=== PATIENT | male | born 1955 | race African-American/Black ===

== ENCOUNTER 2017-07-04 18:48 | Inpatient (IN) | payer OTHER ==
[~2017-07-04] VITALS: Ht 162.6 cm; Wt 64.6 kg
[2017-07-04] MEDS ORDERED: SOD CHLORIDE 0.9% 1,000 ML IV STA ×2 (18:55→19:59)
[2017-07-04 19:00] VITALS: TEMP 97.6
[2017-07-04 19:26] LABS: BASOPHILS % 0.1 % (0.0-2.0); HEMOGLOBIN 13.9 g/dl (14.0-18.0); LYMPHOCYTES # 0.9 10^3/ul (0.8-2.9); LYMPHOCYTES % 10.9 % (15.0-51.0); MEAN CORPUSCULAR HEMOGLOBIN 30.8 pg (29.0-33.0); MEAN CORPUSCULAR HGB CONC 33.1 g/dl (32.0-37.0); MEAN CORPUSCULAR VOLUME 93.1 fl (82.0-101.0); MEAN PLATELET VOLUME 12.7 fl (7.4-10.4); MONOCYTE # 0.3 10^3/ul (0.3-0.9); MONOCYTES % 3.9 % (0.0-11.0); NEUTROPHIL # 7.3 10^3/ul (1.6-7.5); NEUTROPHILS % 84.9 % (39.0-77.0); PLATELET COUNT 245 10^3/UL (140-415); RED BLOOD COUNT 4.51 10^6/ul (4.70-6.10); WHITE BLOOD COUNT 8.6 10^3/ul (4.8-10.8)
--- NOTE | 2017-07-04 19:28 | RADRPT ---
PROCEDURE: XR Chest. CLINICAL INDICATION: Altered mental status. TECHNIQUE: Single frontal chest x-ray. COMPARISON: None. FINDINGS: The cardiomediastinal silhouette is unremarkable. There is no congestive heart failure.. No focal i nfiltrate is seen. There is no pleural effusion. There is no pneumothorax. The osseous structures are unremarkable. IMPRESSION: 1. No active disease. RPTAT: HMVK .Parker Acevedo MD, MD Date Time Electronically viewed and signed by .Parker Acevedo MD, MD on 07/04/2017 19:28 .K/
[2017-07-04 19:41] LABS: INR 1.03; PROTIME 13.6 Sec (11.9-14.9); PT RATIO 1.1
[2017-07-04 19:42] LABS: PARTIAL THROMBOPLASTIN TIME 20.6 Sec (25.0-35.0)
[2017-07-04 19:45] LABS: LACTIC ACID 1.7 mmol/L (0.5-2.0)
[2017-07-04 19:46] LABS: ALANINE AMINOTRANSFERASE 28 IU/L (13-69); ALBUMIN/GLOBULIN RATIO 1.73; ALKALINE PHOSPHATASE 84 IU/L (42-121); ANION GAP 37 (8-16); ASPARTATE AMINO TRANSFERASE 16 IU/L (15-46); BLOOD UREA NITROGEN 39 mg/dl (7-20); CALCIUM 9.3 mg/dl (8.4-10.2); CHLORIDE 97 mmol/L (97-110); CREATININE 1.98 mg/dl (0.61-1.24); POTASSIUM 5.9 mmol/L (3.5-5.1); SODIUM 136 mmol/L (135-144); TOTAL PROTEIN 6.3 g/dl (6.1-8.1)
[2017-07-04] MEDS ORDERED: LISI10TA2 PO (19:50)
[2017-07-04] MEDS ORDERED: HYDR25TA6 PO (19:51)
[2017-07-04] MEDS ORDERED: AMLO5TAB4 PO (19:51)
[2017-07-04 19:57] LABS: TROPONIN-I 0.017 ng/ml (0.00-0.12)
[2017-07-04 19:59] LABS: ACETAMINOPHEN < 10.0 ug/ml (10.0-30.0); CARBON DIOXIDE 8 mmol/L (21-31); ETHANOL < 10.0 mg/dl; GLUCOSE 665 mg/dl (70-220); SALICYLATE < 1.0 mg/dl (5.0-30.0)
[2017-07-04] MEDS ORDERED: INSULIN HUMAN REGULAR 100 UNIT in SOD CHLORIDE 0.9% 99 ML IV STA ×2 (19:59→22:57)
[2017-07-04] MEDS ORDERED: LACTATED RINGER'S 1,000 ML IV STA (19:59)
--- NOTE | 2017-07-04 20:33 | RADRPT ---
PROCEDURE: Noncontrast CT Head. CLINICAL INDICATION: Altered level of consciousness. TECHNIQUE: Noncontrast CT of the head was obtained. The administered radiation dose was CTDI vol = 45.01 mGy, DLP = 720.23 mGy-cm. One or more of the following dose reduction techniques were used: Au tomated exposure control, Adjustment of the mA and/or kV according to patient size, or Use of iterat jelena reconstruction technique. DICOM images are available. COMPARISON: There are no similar studies submitted for comparison. FINDINGS: There is mild generalized cerebral volume loss. There is minimal periventricular hypoattenuation suggesting chronic microvascular ischemic changes. There are mild vascular calcifications within the intracranial carotid arteries. There is no loss of grover-white differentiation to suggest acute territorial infarction. There is no acute intracranial hemorrhage or extra-axial fluid collection. There is no mass effect. No midline shift is identified. The orbits are within normal limits. The paranasal sinuses are well aerated. No destructive osseous lesion is identified. IMPRESSION: 1. No acute intracranial hemorrhage or extra-axial fluid collection. 2. Mild generalized cerebral volume loss. 3. Minimal chronic microvascular ischemic changes. Further findings as detailed above. RPTAT: HVF .Jairo Albert MD, Date Time Electronically viewed and signed by .Jairo Albert MD, on 07/04/2017 20:33 .F/
[2017-07-04] MEDS ORDERED: BISACODYL (EC) 5 MG TAB PO PRN (21:00)
[2017-07-04] MEDS ORDERED: MAGNESIUM HYDROXIDE 30ML CUP PO PRN (21:00)
[2017-07-04] MEDS ORDERED: ACETAMINOPHEN 325 MG TAB PO PRN (21:00)
[2017-07-04] MEDS ORDERED: ACETAMINOPHEN 650MG/20.3ML CUP PO PRN (21:00)
[2017-07-04] MEDS ORDERED: ONDANSETRON 4 MG INJ IV PRN (21:00)
[2017-07-04] MEDS ORDERED: DOCUSATE SODIUM 100 MG CAP PO PRN (21:00)
--- NOTE | 2017-07-04 21:00 | ERD ---
ER Documentation Chief Complaint Chief Complaint aloc, incontinent of urine, URI symptoms, BG "hi"; nondiabetic HPI Patient is a 61-year-old male with hypertension who presents confused. Please note the history and physical exam is limited secondary to the patient's confusion. The patient was brought in by ambulance. He was shivering and shaking per his friend. He had decreased intake by mouth today and was altered and urinating around the house. His blood sugar was greater than 500 by paramedics and they gave some normal saline. Upon review of old medical records this is the patient's first visit to the ER. He does not currently have a primary doctor. He denies diabetes. ROS All systems reviewed and are negative except as per history of present illness. Medications Home Meds Reported Medications Amlodipine Besylate* (Norvasc*) 5 Mg Tablet, 5 MG PO DAILY, TAB 07/04/17 Hydrochlorothiazide* (Hydrochlorothiazide*) 25 Mg Tab, 25 MG PO DAILY, #30 TAB 07/04/17 Lisinopril* (Lisinopril*) 10 Mg Tablet, 10 MG PO DAILY, #30 TAB 07/04/17 Allergies Allergies: Coded Allergies: No Known Allergy (Unverified , 07/04/17) PMhx/Soc Positive for hypertension FmHx Family History: No diabetes Physical Exam Vitals Vital Signs Date Time Temp Pulse Resp B/P Pulse Ox O2 Delivery O2 Flow Rate FiO2 07/04/17 18:58 97.6 76 18 146/63 98 Physical Exam Const: Moderate distress Head: Atraumatic Eyes: Normal Conjunctiva ENT: Normal External Ears, Nose and Mouth. Neck: Full range of motion..~ No meningismus. Resp: Clear to auscultation bilaterally Cardio: Regular rate and rhythm, no murmurs Abd: Soft, non tender, non distended. Normal bowel sounds Skin: No petechiae or rashes Back: No midline or flank tenderness Ext: No cyanosis, or edema Neur: Awake confused Result Diagram: 07/04/17191407/04/171914 Results 24 hrs Laboratory Tests Test 07/04/17 18:55 07/04/17 19:15 Bedside Glucose > 595mg/dL White Blood Count 8.610^3/ul Red Blood Count 4.5110^6/ul Hemoglobin 13.9g/dl Hematocrit 42.0% Mean Corpuscular Volume 93.1fl Mean Corpuscular Hemoglobin 30.8pg Mean Corpuscular Hemoglobin Concent 33.1g/dl Red Cell Distribution Width 12.0% Platelet Count 73290^3/UL Mean Platelet Volume 12.7fl Neutrophils % 84.9% Lymphocytes % 10.9% Monocytes % 3.9% Eosinophils % 0.0% Basophils % 0.1% Nucleated Red Blood Cells % 0.0/100WBC Neutrophils # 7.310^3/ul Lymphocytes # 0.910^3/ul Monocytes # 0.310^3/ul Eosinophils # 0.010^3/ul Basophils # 0.010^3/ul Nucleated Red Blood Cells # 0.010^3/ul Prothrombin Time 13.6Sec Prothrombin Time Ratio 1.1 INR International Normalized Ratio 1.03 Activated Partial Thromboplast Time 20.6Sec Sodium Level 136mmol/L Potassium Level 5.9mmol/L Chloride Level 97mmol/L Carbon Dioxide Level 8mmol/L Anion Gap 37 Blood Urea Nitrogen 39mg/dl Creatinine 1.98mg/dl Glucose Level 665mg/dl Lactic Acid Level 1.7mmol/L Calcium Level 9.3mg/dl Total Bilirubin 0.0mg/dl Direct Bilirubin 0.00mg/dl Indirect Bilirubin 0.0mg/dl Aspartate Amino Transf (AST/SGOT) 16IU/L Alanine Aminotransferase (ALT/SGPT) 28IU/L Alkaline Phosphatase 84IU/L Ammonia 18umol/l Troponin I 0.017ng/ml Total Protein 6.3g/dl Albumin 4.0g/dl Globulin 2.30g/dl Albumin/Globulin Ratio 1.73 Salicylates Level < 1.0mg/dl Acetaminophen Level < 10.0ug/ml Ethyl Alcohol Level < 10.0mg/dl Current Medications Medications (Trade) Dose Ordered Sig/John Route PRN Reason Start Time Stop Time Status Last Admin Dose Admin Sodium Chloride 1,000 ml @ 1,000 mls/hr Q1H STAT IV 07/04/17 18:55 07/04/17 19:54 DC 07/04/17 19:28 Sodium Chloride 1,000 ml @ 1,000 mls/hr Q1H STAT IV 07/04/17 19:59 07/04/17 20:58 07/04/17 20:39 Lactated Ringer's 1,000 ml @ 1,000 mls/hr Q1H STAT IV 07/04/17 19:59 07/04/17 20:58 Insulin Human Regular 100 unit/ Sodium Chloride 100 ml @ 7 mls/hr ONCE STAT IV 07/04/17 19:59 07/05/17 10:16 Sodium Chloride (NS) 1,000 ml @ 250 mls/hr Q4H IV 07/04/17 20:38 UNV Ondansetron HCl (Zofran Inj) 4 mg Q6H PRN IV NAUSEA AND/OR VOMITING 07/04/17 21:00 UNV Acetaminophen (Tylenol Liquid) 650 mg Q6H PRN PO PAIN LEVEL 1-3 OR FEVER 07/04/17 21:00 UNV Acetaminophen (Tylenol Tab) 650 mg Q6H PRN PO PAIN LEVEL 1-3 OR FEVER 07/04/17 21:00 UNV Docusate Sodium (Colace) 100 mg Q12H PRN PO CONSTIPATION 07/04/17 21:00 UNV Magnesium Hydroxide (Milk Of Mag) 30 ml DAILY PRN PO CONSTIPATION 07/04/17 21:00 UNV Bisacodyl (Dulcolax) 5 mg DAILY PRN PO CONSTIPATION 07/04/17 21:00 UNV Pantoprazole (Protonix Iv) 40 mg DAILY@06 IV 07/05/17 06:00 UNV Enoxaparin Sodium (Lovenox) 40 mg DAILY SC 07/05/17 09:00 UNV Procedures/MDM CT brain negative for intrarenal hemorrhage or mass per radiology. Patient is a 61-year-old male presents with new onset diabetes and acute diabetic ketoacidosis. He was found to have a blood sugar greater than 600 and a bicarbonate of 8. He was given 2 L of normal saline 1 L of lactated Ringer's as well as regular insulin drip at 7 U/h. The patient will be admitted to the care of Dr. Diaz as he has [facility] insurance. He is critically ill. He will need treatment for the DKA and then education and treatment regarding diabetes as well. Critical Care: Time: 45 minutes excluding all billable procedures. Treatments/Evaluations: Close monitoring and treatment of unstable vital signs, cardiorespiratory, and neurologic status, while maintaining tight balance of fluid, respiratory, and cardiac interventions. Departure Diagnosis: Primary Impression: Altered level of consciousness Additional Impression: DKA (diabetic ketoacidoses) Diabetes mellitus type: other specified (including GISSELL) Diabetes mellitus complication detail: without coma Qualified Code: E13.10 - Diabetic ketoacidosis without coma associated with other specified diabetes mellitus Condition: Critical PENG REYES MD Jul 04, 2017 21:00
[2017-07-04] MEDS: SOD CHLORIDE 0.9% 1,000 ML IV SCH (21:07)
[2017-07-04 21:12] LABS: AADO2 Arterial 4.1 mmHg (7.0-24.0); Arterial Base Excess -22.4 mmol/L (-3.0-3); Arterial COHb 0.3 % (0.0-3.0); Arterial Fraction of Oxyhgb 97.1 % (93.0-99.0); Arterial HCO3 3.8 mmol/L (22.0-26.0); Arterial MetHb 0.4 % (0.0-1.5); Arterial Total Hemglobin 13.8 g/dl (12.0-18.0); MODE ROOM AIR
[2017-07-04 22:18] LABS: ADD UMIC YES; UR ASCORBIC ACID NEGATIVE (NEGATIVE); UR BACTERIA FEW /HPF (NONE SEEN); UR BILIRUBIN (Dip) NEGATIVE (NEGATIVE); UR BLOOD (Dip) 1+ mg/dL (NEGATIVE); UR CLARITY CLEAR (CLEAR); UR COLOR COLORLESS (YELLOW); UR GLUCOSE (Dip) 3+ mg/dL (NEGATIVE); UR KETONES (Dip) 2+ mg/dL (NEGATIVE); UR LEUKOCYTE ESTERASE (Dip) NEGATIVE Leu/ul (NEGATIVE); UR MUCUS FEW /HPF (NONE SEEN); UR NITRITE (Dip) NEGATIVE (NEGATIVE); UR RBC 1 /HPF (0-5); UR SPECIFIC GRAVITY (Dip) 1.014 (1.003-1.030); UR TOTAL PROTEIN (Dip) NEGATIVE (NEGATIVE); UR UROBILINOGEN (Dip) NEGATIVE (NEGATIVE)
[2017-07-04 22:38] LABS: BARBITURATES Negative (NEGATIVE); BENZODIAZEPINES Negative (NEGATIVE); CANNABINOIDS Negative (NEGATIVE); COCAINE Negative (NEGATIVE); OPIATES Negative (NEGATIVE)
--- NOTE | 2017-07-04 22:53 | QN ---
Documentation Comment [id number] LEEANNA BENNETT MD Jul 04, 2017 22:53
[2017-07-04] MEDS ORDERED: DEXTROSE 50% 50 ML SYRINGE IV PRN ×2 (23:00)
[2017-07-04] MEDS ORDERED: GLUCOSE GEL 15 GRAM TUBE PO PRN ×2 (23:00)
[2017-07-04] MEDS ORDERED: GLUCOSE GEL 15 GRAM TUBE BUCCAL PRN (23:00)
[2017-07-04] MEDS ORDERED: GLUCAGON 1 MG INJ IM PRN (23:00)
[2017-07-04 23:02] LABS: CALCIUM 8.7 mg/dl (8.4-10.2); CREATININE 1.64 mg/dl (0.61-1.24); POTASSIUM 5.4 mmol/L (3.5-5.1)
[2017-07-05] VITALS (26 sets, daily range): BP systolic 91–131; BP diastolic 46–83; PULSE 54–85; RESP 5–24; Ht 162.6 cm; Wt 64.6 kg
[2017-07-05 01:07] LABS: CALCIUM 9.3 mg/dl (8.4-10.2); CREATININE 1.37 mg/dl (0.61-1.24); POTASSIUM 5.3 mmol/L (3.5-5.1)
[2017-07-05] MEDS ORDERED: DEXTROSE 50% 50 ML IV PRN (01:15)
[2017-07-05] MEDS ORDERED: DEXTROSE 50% 25 ML IV PRN (01:15)
[2017-07-05] MEDS ORDERED: ADJUSTMENT OF INSULIN INFUSION RATE (DKA PROTOCOL) XX SCH (01:30)
[2017-07-05] MEDS ORDERED: ACCU-CHEK XX SCH (02:00)
[2017-07-05] MEDS: SOD CHLORIDE 0.9% 1,000 ML IV SCH ×2 (02:09→12:25)
--- NOTE | 2017-07-05 02:40 | HP ---
DATE OF ADMISSION: 07/04/2017 HISTORY OF PRESENT ILLNESS: Mr. Doty is a 61-year-old male who has no significant past medical history except history of hypertension, on amlodipine, hydrochlorothiazide and lisinopril, presented with complaints, as per the patient, of shivering and shaking. The patient also has a decreased intake by mouth, was initially confused. The patient received IV fluids in the ER. ABG done, showed 7.015 pH, 11, CO2 of 132. The patient's sodium is 136, potassium 5.9, CO2 8, BUN 39, and creatinine 1.98. The patient has a urinalysis that is negative. Urine toxicology is negative, hemoglobin of 8.6, hematocrit 13.9. The patient's urinalysis is negative and the patient is going to be admitted for further management. PAST MEDICAL HISTORY: Hypertension. No history of diabetes mellitus. ALLERGY HISTORY: Cannot be obtained. FAMILY HISTORY: Cannot be obtained. SOCIAL HISTORY: Cannot be obtained. MEDICATION HISTORY: Medication history at home listed as: 1. Amlodipine. 2. Hydrochlorothiazide. 3. Lisinopril. REVIEW OF SYSTEMS: HEENT: Unremarkable for headache, diplopia, blurred vision. RESPIRATORY: Unremarkable. ABDOMEN: Unremarkable. EXTREMITIES: Unremarkable. CENTRAL NERVOUS SYSTEM: As mentioned above. PHYSICAL EXAMINATION: GENERAL: The patient is awake, alert, looks clinically dehydrated. VITAL SIGNS: Pulse 91, blood pressure 126/63. HEAD: Atraumatic, normocephalic. Pupils are equal, reactive to light. NECK: Supple. No JVD. LUNGS: Clear. CARDIOVASCULAR: S1, S2 are normal. ABDOMEN: Soft. Bowel sounds positive. No palpable mass or hepatosplenomegaly. EXTREMITIES: No cyanosis, clubbing, or edema. CENTRAL NERVOUS SYSTEM: The patient is awake, alert with no focal deficit. LABORATORY DATA: As mentioned above. IMPRESSION: 1. Diabetic ketoacidosis. 2. Hyperkalemia. 3. Hyponatremia. 4. Acute kidney injury. 5. Dehydration. 6. History of hypertension. PLAN: Plan at this point is to give this patient IV fluid, insulin drip, PPI and DVT prophylaxis. The patient will have electrolytes monitored. Dictated By: LEEANNA ROBLES/LEO Conf#: [id number] DID#: [id number] CC: LEEANNA BENNETT MD;*EndCC* MTDD
[2017-07-05] MEDS ORDERED: INSULIN HUMAN REGULAR 100 UNIT in SOD CHLORIDE 0.9% 99 ML IV SCH ×2 (03:00→11:30)
[2017-07-05] MEDS ORDERED: DEXTROSE 50% 50 ML SYRINGE IV PRN ×4 (03:00→10:00)
[2017-07-05] MEDS: ACCU-CHEK XX SCH ×21 (03:03→23:00)
[2017-07-05] MEDS: DEXTROSE 5%-0.9% NACL 1,000 ML IV SCH ×2 (03:17→09:13)
[2017-07-05 03:28] LABS: CREATININE 1.32 mg/dl (0.61-1.24); POTASSIUM 4.7 mmol/L (3.5-5.1)
[2017-07-05] MEDS: PANTOPRAZOLE 40 MG INJ IV SCH (05:32)
[2017-07-05 05:46] LABS: BASOPHILS % 0.3 % (0.0-2.0); EOSINOPHILS % 0.6 % (0.0-7.0); HEMATOCRIT 34.5 % (42.0-52.0); HEMOGLOBIN 11.9 g/dl (14.0-18.0); LYMPHOCYTES # 1.3 10^3/ul (0.8-2.9); LYMPHOCYTES % 19.4 % (15.0-51.0); MEAN CORPUSCULAR HEMOGLOBIN 31.2 pg (29.0-33.0); MEAN CORPUSCULAR HGB CONC 34.5 g/dl (32.0-37.0); MEAN CORPUSCULAR VOLUME 90.3 fl (82.0-101.0); MEAN PLATELET VOLUME 12.1 fl (7.4-10.4); MONOCYTE # 0.5 10^3/ul (0.3-0.9); MONOCYTES % 6.9 % (0.0-11.0); NEUTROPHIL # 4.8 10^3/ul (1.6-7.5); NEUTROPHILS % 72.5 % (39.0-77.0); PLATELET COUNT 212 10^3/UL (140-415); RED BLOOD COUNT 3.82 10^6/ul (4.70-6.10); WHITE BLOOD COUNT 6.6 10^3/ul (4.8-10.8)
[2017-07-05 06:20] LABS: ALBUMIN 2.9 g/dl (3.3-4.9); ALBUMIN/GLOBULIN RATIO 0.96; BILIRUBIN,INDIRECT 0.1 mg/dl (0-1.1); BILIRUBIN,TOTAL 0.1 mg/dl (0.2-1.3); CALCIUM 8.9 mg/dl (8.4-10.2); CREATININE 1.1 mg/dl (0.61-1.24); PHOSPHORUS 1.7 mg/dl (2.5-4.9); TOTAL PROTEIN 5.9 g/dl (6.1-8.1)
[2017-07-05 09:11] LABS: CALCIUM 7.4 mg/dl (8.4-10.2); CREATININE 0.99 mg/dl (0.61-1.24); POTASSIUM 3.3 mmol/L (3.5-5.1)
--- NOTE | 2017-07-05 09:25 | PN ---
Date/Time of Note Date/Time of Note DATE: 07/05/17 TIME: 09:24 Assessment/Plan VTE Prophylaxis VTE Prophylaxis Intervention: LMWH Lines/Catheters IV Catheter Type (from [facility]): Peripheral IV Urinary Cath still in place: No Assessment/Plan Chief Complaint/Hosp Course 1 Diabetic ketoacidosis. 2. Hyperkalemia. 3. Hyponatremia. 4. Acute kidney injury resolved likley due to dehydration 5. Dehydration. 6. History of hypertension. 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 Pupils are equal, reactive to light. NECK: Supple. No JVD. LUNGS: Clear. CARDIOVASCULAR: S1, S2 are normal. ABDOMEN: Soft. Bowel sounds positive. No palpable mass or hepatosplenomegaly. EXTREMITIES: No cyanosis, clubbing, or edema. CENTRAL NERVOUS SYSTEM: The patient is awake, alert with no focal deficit. Results Result Diagram: 07/05/17 0445 07/05/17 0445 Results 24 hrs Laboratory Tests Test 07/04/17 18:55 07/04/17 19:15 07/04/17 21:00 07/04/17 21:24 Bedside Glucose > 595 *H 482 *H White Blood Count 8.6 Red Blood Count 4.51 L Hemoglobin 13.9 L Hematocrit 42.0 Mean Corpuscular Volume 93.1 Mean Corpuscular Hemoglobin 30.8 Mean Corpuscular Hemoglobin Concent 33.1 Red Cell Distribution Width 12.0 Platelet Count 245 Mean Platelet Volume 12.7 H Neutrophils % 84.9 H Lymphocytes % 10.9 L Monocytes % 3.9 Eosinophils % 0.0 Basophils % 0.1 Nucleated Red Blood Cells % 0.0 Neutrophils # 7.3 Lymphocytes # 0.9 Monocytes # 0.3 Eosinophils # 0.0 Basophils # 0.0 Nucleated Red Blood Cells # 0.0 Prothrombin Time 13.6 Prothrombin Time Ratio 1.1 INR International Normalized Ratio 1.03 Activated Partial Thromboplast Time 20.6 L Sodium Level 136 Potassium Level 5.9 H Chloride Level 97 Carbon Dioxide Level 8 *L Anion Gap 37 H Blood Urea Nitrogen 39 H Creatinine 1.98 H Glucose Level 665 *H Hemoglobin A1c Lactic Acid Level 1.7 Calcium Level 9.3 Total Bilirubin 0.0 L Direct Bilirubin 0.00 Indirect Bilirubin 0.0 Aspartate Amino Transf (AST/SGOT) 16 Alanine Aminotransferase (ALT/SGPT) 28 Alkaline Phosphatase 84 Ammonia 18 Troponin I 0.017 Total Protein 6.3 Albumin 4.0 Globulin 2.30 Albumin/Globulin Ratio 1.73 Salicylates Level < 1.0 L Acetaminophen Level < 10.0 L Ethyl Alcohol Level < 10.0 Blood Gas Specimen Source Blood arterial Arterial Blood Date Drawn 07/04/2017 9:00:11 PM Arterial Blood pH (Temp corrected) 7.152 *L Arterial Blood pCO2 (Temp correct) 11.2 L Arterial Blood pO2 (Temp corrected) 132.2 H Arterial Blood HCO3 3.8 *L Arterial Blood Base Excess -22.4 L Arterial Blood Oxygen Saturation 97.8 Noel Test N/A Arterial Blood Gas Puncture Site Right Brachial Arterial Blood Carboxyhemoglobin 0.3 Arterial Blood Methemoglobin 0.4 Blood Gas A-a O2 Differential 4.1 L Oxyhemoglobin Percent 97.1 Total Hemoglobin 13.8 Blood Gas Temperature 37.0 Blood Gas Actual Respiration Rate 26 Blood Gas Modality ROOM AIR FiO2 21.0 Blood Gas Critical Value Read Back DIALY GAUTHIER Blood Gas Notified Whom BK Blood Gas Notified Time 07/04/2017 9:11:45 PM Test 07/04/17 22:00 07/04/17 22:31 07/04/17 23:08 07/05/17 00:26 Urine Color COLORLESS Urine Clarity CLEAR Urine pH 5.0 Urine Specific [place] 1.014 Urine Ketones 2+ H Urine Nitrite NEGATIVE Urine Bilirubin NEGATIVE Urine Urobilinogen NEGATIVE Urine Leukocyte Esterase NEGATIVE Urine Microscopic RBC 1 Urine Microscopic WBC 1 Urine Bacteria FEW A Urine Mucus FEW A Urine Hemoglobin 1+ H Urine Glucose 3+ H Urine Total Protein NEGATIVE Urine Opiates Screen Negative Urine Barbiturates Negative Urine Amphetamines Screen Negative Urine Benzodiazepines Screen Negative Urine Cocaine Screen Negative Urine Cannabinoids Negative Sodium Level 142 145 H Potassium Level 5.4 H 5.3 H Chloride Level 107 # 109 Carbon Dioxide Level 6 *L 12 L Anion Gap 34 H 29 H Blood Urea Nitrogen 34 H 34 H Creatinine 1.64 H 1.37 H Glucose Level 501 #*H 266 #H Calcium Level 8.7 9.3 Bedside Glucose 375 H Test 07/05/17 00:27 07/05/17 01:42 07/05/17 02:52 07/05/17 03:03 Bedside Glucose 247 H 282 H 171 Sodium Level 147 H Potassium Level 4.7 Chloride Level 114 H Carbon Dioxide Level 12 L Anion Gap 26 H Blood Urea Nitrogen 33 H Creatinine 1.32 H Glucose Level 170 Calcium Level 9.0 Test 07/05/17 04:28 07/05/17 04:45 07/05/17 05:25 07/05/17 06:01 Bedside Glucose 164 88 86 White Blood Count 6.6 # Red Blood Count 3.82 L Hemoglobin 11.9 L Hematocrit 34.5 L Mean Corpuscular Volume 90.3 Mean Corpuscular Hemoglobin 31.2 Mean Corpuscular Hemoglobin Concent 34.5 Red Cell Distribution Width 12.0 Platelet Count 212 Mean Platelet Volume 12.1 H Neutrophils % 72.5 Lymphocytes % 19.4 Monocytes % 6.9 Eosinophils % 0.6 Basophils % 0.3 Nucleated Red Blood Cells % 0.0 Neutrophils # 4.8 Lymphocytes # 1.3 Monocytes # 0.5 Eosinophils # 0.0 Basophils # 0.0 Nucleated Red Blood Cells # 0.0 Sodium Level 145 H Potassium Level 4.0 Chloride Level 115 H Carbon Dioxide Level 18 L Anion Gap 16 # Blood Urea Nitrogen 31 H Creatinine 1.10 Glucose Level 101 # Calcium Level 8.9 Phosphorus Level 1.7 L Magnesium Level 2.0 Total Bilirubin 0.1 L Direct Bilirubin 0.00 Indirect Bilirubin 0.1 Aspartate Amino Transf (AST/SGOT) 18 Alanine Aminotransferase (ALT/SGPT) 26 Alkaline Phosphatase 55 Total Protein 5.9 L Albumin 2.9 #L Globulin 3.00 Albumin/Globulin Ratio 0.96 Test 07/05/17 07:47 07/05/17 08:31 Bedside Glucose 247 H 109 Medications Medications Current Medications Ondansetron HCl (Zofran Inj) 4 mg Q6H PRN IV NAUSEA AND/OR VOMITING; Start at 21:00 Acetaminophen (Tylenol Liquid) 650 mg Q6H PRN PO PAIN LEVEL 1-3 OR FEVER; Start 07/04/17 at 21:00 Acetaminophen (Tylenol Tab) 650 mg Q6H PRN PO PAIN LEVEL 1-3 OR FEVER; Start 07/04/17 at 21:00 Docusate Sodium (Colace) 100 mg Q12H PRN PO CONSTIPATION; Start 07/04/17 at 21 :00 Magnesium Hydroxide (Milk Of Mag) 30 ml DAILY PRN PO CONSTIPATION; Start 07/04 at 21:00 Bisacodyl (Dulcolax) 5 mg DAILY PRN PO CONSTIPATION; Start 07/04/17 at 21:00 Pantoprazole (Protonix Iv) 40 mg DAILY@06 IV Last administered on 07/05/17 05 :32; Admin Dose 40 MG; Start 07/05/17 at 06:00 Enoxaparin Sodium (Lovenox) 40 mg DAILY SC ; Start 07/05/17 at 09:00 Glucose (Glutose) 15 gm Q15M PRN PO DECREASED GLUCOSE; Start 07/04/17 at 23:00 Glucose (Glutose) 22.5 gm Q15M PRN PO DECREASED GLUCOSE; Start 07/04/17 at 23: 00 Glucagon (Glucagen) 1 mg Q15M PRN IM DECREASED GLUCOSE; Start 07/04/17 at 23: 00 Glucose (Glutose) 15 gm Q15M PRN BUCCAL DECREASED GLUCOSE; Start 07/04/17 at 23:00 Dextrose (D50w Syringe) 50 ml Q15M PRN IV For BS 50 or less; Start 07/05/17 at 03:00 Dextrose (D50w Syringe) 25 ml Q15M PRN IV BS between 50-70; Start 07/05/17 at 03:00 Diagnostic Test (Pha) 1 ea 1 ea Q1H XX Last administered on 07/05/17 08:32; Admin Dose 1 EA; Start 07/05/17 at 03:00 Dextrose/Sodium Chloride (D5-NS) 1,000 ml @ 175 mls/hr Q5H43M IV Last administered on 07/05/17 03:17; Admin Dose 175 MLS/HR; Start 07/05/17 at 03: 30 SHANICE SCHRADER MD Jul 05, 2017 09:25
[2017-07-05] MEDS: ENOXAPARIN 40 MG/0.4 ML SYG SC SCH (11:23)
[2017-07-05] MEDS ORDERED: POTASSIUM PHOSPHATE 20 MEQ in SOD CHLORIDE 0.9% 250 ML IVPB ONE (12:00)
[2017-07-06] VITALS (26 sets, daily range): BP systolic 113–156; BP diastolic 48–75; PULSE 49–78; RESP 9–25
[2017-07-06] MEDS: ACCU-CHEK XX SCH ×13 (01:00→11:46)
[2017-07-06] MEDS: SOD CHLORIDE 0.9% 1,000 ML IV SCH ×3 (02:58→20:55)
[2017-07-06] MEDS: PANTOPRAZOLE 40 MG INJ IV SCH (05:38)
[2017-07-06 07:59] LABS: ALBUMIN/GLOBULIN RATIO 0.95
[2017-07-06 08:07] LABS: ALBUMIN 2.3 g/dl (3.3-4.9); BILIRUBIN,INDIRECT 0.1 mg/dl (0-1.1); BILIRUBIN,TOTAL 0.1 mg/dl (0.2-1.3); CREATININE 0.9 mg/dl (0.61-1.24); POTASSIUM 3.4 mmol/L (3.5-5.1); TOTAL PROTEIN 4.7 g/dl (6.1-8.1)
[2017-07-06] MEDS: ENOXAPARIN 40 MG/0.4 ML SYG SC SCH (08:45)
--- NOTE | 2017-07-06 09:11 | PN ---
Date/Time of Note Date/Time of Note DATE: 07/06/17 TIME: 09:08 Assessment/Plan VTE Prophylaxis VTE Prophylaxis Intervention: heparin, LMWH Lines/Catheters IV [facility]ter Type (from [facility] Peripheral IV Urinary Cath still in place: No Assessment/Plan Chief Complaint/Hosp Course 1 Diabetic ketoacidosis. 2. Hyperkalemia. now hypokalemic 3. Hyponatremia. 4. Acute kidney injury resolved likley due to dehydration resolved 5. Dehydration. 6. History of hypertension. Recs - dc insulin gtt - Start Lantus 10 units 2 hrs before dc gtt - Novolog 2 tid with meals and ISS - Carb controlled diet - HBA1C pending - Send C peptide -- decrease NS - Transfer to med surg if sugars controlled by this afternoon - DM educator - c/w PPI/Lovenox Problems: Subjective 24 Hr Interval Summary Free Text/Dictation Pt much more awake and alert FS in 100'S , Exam/Review of Systems Vital Signs Vitals Vital Signs Date Time Temp Pulse Resp B/P Pulse Ox O2 Delivery O2 Flow Rate FiO2 07/06/17 06:00 52 12 119/53 98 Room Air 07/06/17 04:00 98.8 Intake and Output 07/05/17 07/05/17 07/06/17 14:59 22:59 06:59 Intake Total 1324.176 ml 1518.9095 ml 1506.9 ml Output Total 930 ml Balance 1324.176 ml 588.9095 ml 1506.9 ml Exam hEAD: Atraumatic, normocephalic. Pupils are equal, reactive to light. NECK: Supple. No JVD. LUNGS: Clear. CARDIOVASCULAR: S1, S2 are normal. ABDOMEN: Soft. Bowel sounds positive. No palpable mass or hepatosplenomegaly. EXTREMITIES: No cyanosis, clubbing, or edema. CENTRAL NERVOUS SYSTEM: The patient is awake, alert with no focal deficit. Results Result Diagram: 07/05/17 0445 07/06/17 0532 Results 24 hrs Laboratory Tests Test 07/05/17 10:16 07/05/17 10:22 07/05/17 10:30 07/05/17 10:54 Bedside Glucose 55 L 41 *L 44 *L 95 Test 07/05/17 11:18 07/05/17 12:21 07/05/17 13:23 07/05/17 14:05 Bedside Glucose 140 205 214 172 Test 07/05/17 15:26 07/05/17 16:13 07/05/17 17:17 07/05/17 18:08 Bedside Glucose 161 125 104 95 Test 07/05/17 19:52 07/05/17 21:10 07/05/17 23:05 07/06/17 01:01 Bedside Glucose 124 108 123 116 Test 07/06/17 03:00 07/06/17 05:00 07/06/17 05:32 07/06/17 06:48 Bedside Glucose 100 78 114 Sodium Level 142 Potassium Level 3.4 L Chloride Level 114 H Carbon Dioxide Level 21 Anion Gap 10 Blood Urea Nitrogen 16 # Creatinine 0.90 Glucose Level 76 # Calcium Level 8.0 L Total Bilirubin 0.1 L Direct Bilirubin 0.00 Indirect Bilirubin 0.1 Aspartate Amino Transf (AST/SGOT) 21 Alanine Aminotransferase (ALT/SGPT) 29 Alkaline Phosphatase 50 Total Protein 4.7 #L Albumin 2.3 L Globulin 2.40 Albumin/Globulin Ratio 0.95 Test 07/06/17 08:32 Bedside Glucose 138 Medications Medications Current Medications Ondansetron HCl (Zofran Inj) 4 mg Q6H PRN IV NAUSEA AND/OR VOMITING; Start at 21:00 Acetaminophen (Tylenol Liquid) 650 mg Q6H PRN PO PAIN LEVEL 1-3 OR FEVER; Start 07/04/17 at 21:00 Acetaminophen (Tylenol Tab) 650 mg Q6H PRN PO PAIN LEVEL 1-3 OR FEVER; Start 07/04/17 at 21:00 Docusate Sodium (Colace) 100 mg Q12H PRN PO CONSTIPATION; Start 07/04/17 at 21 :00 Magnesium Hydroxide (Milk Of Mag) 30 ml DAILY PRN PO CONSTIPATION; Start 07/04 at 21:00 Bisacodyl (Dulcolax) 5 mg DAILY PRN PO CONSTIPATION; Start 07/04/17 at 21:00 Pantoprazole (Protonix Iv) 40 mg DAILY@06 IV Last administered on 07/06/17 05 :38; Admin Dose 40 MG; Start 07/05/17 at 06:00 Enoxaparin Sodium 40 mg 40 mg DAILY SC Last administered on 07/05/17 11:23; Admin Dose 40 MG; Start 07/05/17 at 09:00 Sodium Chloride (NS) 1,000 ml @ 100 mls/hr Q10H IV Last administered on 02:58; Admin Dose 100 MLS/HR; Start 07/05/17 at 09:30 Diagnostic Test (Pha) (Accu-Chek) 1 ea Q1H XX Last administered on 07/06/17t 05:07; Admin Dose 1 EA; Start 07/05/17 at 10:00 Dextrose (D50w Syringe) 25 ml Q15M PRN IV Till BS 80 mg/dL or above x2; Start 07/05/17 at 10:00 Dextrose (D50w Syringe) 50 ml Q15M PRN IV Till BS 80 mg/dL or above x2; Start 07/05/17 at 10:00 Miscellaneous Information (* Miscellaneous Pharmacy Order) Discontinue current oral sulfonylur... ONCE ONCE XX ; Start 07/06/17 at 09:00; Stop 07/06/17 at 09:01; Status UNV Diagnostic Test (Pha) (Accu-Chek) 1 ea 02 XX ; Start 07/07/17 at 02:00; Status UNV Insulin Glargine (Lantus) 10 unit DAILY@08 SC ; Start 07/07/17 at 08:00; Status UNV Miscellaneous Information (* Miscellaneous Pharmacy Order) HYPOGLYCEMIA PROTOCOL w... ONCE ONCE XX ; Start 07/06/17 at 09:00; Stop 07/06/17 at 09:01 ; Status UNV Miscellaneous Information (* Miscellaneous Pharmacy Order) Discontinue all previ... ONCE ONCE XX ; Start 07/06/17 at 09:00; Stop 07/06/17 at 09:01; Status UNV SHANICE SCHRADER MD Jul 06, 2017 09:11
[2017-07-06] MEDS ORDERED: DEXTROSE 50% 50 ML SYRINGE IV PRN ×2 (09:30)
[2017-07-06] MEDS ORDERED: GLUCOSE GEL 15 GRAM TUBE BUCCAL PRN (09:30)
[2017-07-06] MEDS ORDERED: GLUCAGON 1 MG INJ IM PRN (09:30)
[2017-07-06] MEDS ORDERED: GLUCOSE GEL 15 GRAM TUBE PO PRN ×2 (09:30)
[2017-07-06] MEDS ORDERED: POTASSIUM CHLORIDE 250 ML IVPB ONE (10:00)
[2017-07-06] MEDS: INSULIN GLARGINE [LANtus] 3 ML PEN SC SCH (10:51)
[2017-07-06] MEDS: INSULIN ASPART [NOVOLOG] 3 ML PEN SC SCH ×5 (11:30→20:54)
[2017-07-06] MEDS: GUAIFENESIN/DM 5ML CUP PO PRN (15:48)
[2017-07-07] MEDS: ACCU-CHEK XX SCH (01:13)
[2017-07-07 01:30] VITALS: BP 140/62; RESP 18
[2017-07-07] MEDS: PANTOPRAZOLE 40 MG INJ IV SCH (06:03)
[2017-07-07 06:37] LABS: CREATININE 0.78 mg/dl (0.61-1.24); POTASSIUM 3.5 mmol/L (3.5-5.1)
[2017-07-07 08:33] VITALS: BP 152/73; RESP 18
[2017-07-07] MEDS: INSULIN ASPART [NOVOLOG] 3 ML PEN SC SCH ×7 (09:27→21:28)
[2017-07-07] MEDS: INSULIN GLARGINE [LANtus] 3 ML PEN SC SCH ×2 (09:28→21:29)
[2017-07-07] MEDS: ENOXAPARIN 40 MG/0.4 ML SYG SC SCH (09:29)
--- NOTE | 2017-07-07 13:23 | PN ---
Date/Time of Note Date/Time of Note DATE: 07/07/17 TIME: 13:22 Assessment/Plan VTE Prophylaxis VTE Prophylaxis Intervention: ambulation Lines/Catheters IV Catheter Type (from [facility]): Saline Lock Urinary Cath still in place: No Assessment/Plan Chief Complaint/Hosp Course 1. Diabetic ketoacidosis. 2. Hyperkalemia. now hypokalemic 3. Hyponatremia, resolved. 4. Acute kidney injury resolved 5. Dehydration. 6. History of hypertension. Problems: Assessment/Plan 1. better DM control 2. PT evaluation Subjective 24 Hr Interval Summary Constitutional: improved, no complaints Eyes: no complaints Genitourinary: no complaints Exam/Review of Systems Vital Signs Vitals Vital Signs Date Time Temp Pulse Resp B/P Pulse Ox O2 Delivery O2 Flow Rate FiO2 07/07/17 08:33 98.9 54 18 152/73 99 07/06/17 20:00 Room Air Intake and Output 07/06/17 07/06/17 07/07/17 15:00 23:00 07:00 Intake Total 1053.45 ml 690 ml 600 ml Output Total 600 ml 325 ml 1000 ml Balance 453.45 ml 365 ml -400 ml Exam Constitutional: alert, oriented Neck: supple Respiratory: clear to auscultation Cardiovascular: regular rate and rhythm Results Result Diagram: 07/05/17 0445 07/07/17 0444 Results 24 hrs Laboratory Tests Test 07/06/17 17:21 07/06/17 20:50 07/07/17 04:44 07/07/17 09:00 Bedside Glucose 222 H 250 H 215 Sodium Level 141 Potassium Level 3.5 Chloride Level 111 H Carbon Dioxide Level 21 Anion Gap 13 Blood Urea Nitrogen 11 Creatinine 0.78 Glucose Level 187 # Calcium Level 8.0 L Test 07/07/17 11:18 07/07/17 12:48 Lab Scanned Report REFERENCE LAB Bedside Glucose 320 H Medications Medications Current Medications Ondansetron HCl (Zofran Inj) 4 mg Q6H PRN IV NAUSEA AND/OR VOMITING; Start at 21:00 Acetaminophen (Tylenol Liquid) 650 mg Q6H PRN PO PAIN LEVEL 1-3 OR FEVER; Start 07/04/17 at 21:00 Acetaminophen (Tylenol Tab) 650 mg Q6H PRN PO PAIN LEVEL 1-3 OR FEVER; Start 07/04/17 at 21:00 Docusate Sodium (Colace) 100 mg Q12H PRN PO CONSTIPATION; Start 07/04/17 at 21 :00 Magnesium Hydroxide (Milk Of Mag) 30 ml DAILY PRN PO CONSTIPATION; Start 07/04 at 21:00 Bisacodyl (Dulcolax) 5 mg DAILY PRN PO CONSTIPATION; Start 07/04/17 at 21:00 Pantoprazole (Protonix Iv) 40 mg DAILY@06 IV Last administered on 07/07/17 06 :03; Admin Dose 40 MG; Start 07/05/17 at 06:00 Enoxaparin Sodium 40 mg 40 mg DAILY SC Last administered on 07/07/17 09:29; Admin Dose 40 MG; Start 07/05/17 at 09:00 Sodium Chloride (NS) 1,000 ml @ 50 mls/hr Q20H IV Last administered on 20:55; Admin Dose 50 MLS/HR; Start 07/05/17 at 09:30 Diagnostic Test (Pha) (Accu-Chek) 1 ea 02 XX ; Start 07/07/17 at 02:00 Insulin Glargine (Lantus) 10 unit DAILY@08 SC Last administered on 07/07/17 09:28; Admin Dose 10 UNIT; Start 07/06/17 at 10:00 Miscellaneous Information 1 ea NOTE XX ; Start 07/06/17 at 09:30 Glucose (Glutose) 15 gm Q15M PRN PO DECREASED GLUCOSE; Start 07/06/17 at 09:30 Glucose (Glutose) 22.5 gm Q15M PRN PO DECREASED GLUCOSE; Start 07/06/17 at 09: 30 Dextrose (D50w Syringe) 25 ml Q15M PRN IV DECREASED GLUCOSE; Start 07/06/17 at 09:30 Dextrose (D50w Syringe) 50 ml Q15M PRN IV DECREASED GLUCOSE; Start 07/06/17 at 09:30 Glucagon (Glucagen) 1 mg Q15M PRN IM DECREASED GLUCOSE; Start 07/06/17 at 09: 30 Glucose (Glutose) 15 gm Q15M PRN BUCCAL DECREASED GLUCOSE; Start 07/06/17 at 09:30 Guaifenesin/ Dextromethorphan (Robitussin Dm Liquid Cup) 15 ml Q6H PRN PO COUGH Last administered on 07/06/17 15:48; Admin Dose 15 ML; Start 07/06/17 at 15:30 SHIMA GARNER Jul 07, 2017 13:23
[2017-07-07 15:03] VITALS: BP 128/73; RESP 18
[2017-07-07] MEDS: LINAGLIPTIN 5 MG TABLET PO SCH (15:24)
[2017-07-07 19:33] VITALS: BP 126/59; RESP 16
[2017-07-08 01:23] VITALS: BP 163/74; RESP 18
[2017-07-08] MEDS: GUAIFENESIN/DM 5ML CUP PO PRN (01:37)
[2017-07-08] MEDS: ACCU-CHEK XX SCH (02:00)
[2017-07-08] MEDS: PANTOPRAZOLE 40 MG INJ IV SCH (05:31)
[2017-07-08 06:54] LABS: CALCIUM 8.4 mg/dl (8.4-10.2); CREATININE 0.74 mg/dl (0.61-1.24); POTASSIUM 3.8 mmol/L (3.5-5.1)
[2017-07-08 08:50] VITALS: BP 137/65; RESP 18
[2017-07-08] MEDS ORDERED: INFLUENZA VIRUS VACCINE 0.5 ML (DISPENSING) IM* ONE (09:00)
[2017-07-08] MEDS: LINAGLIPTIN 5 MG TABLET PO SCH (09:13)
[2017-07-08] MEDS: ENOXAPARIN 40 MG/0.4 ML SYG SC SCH (09:17)
[2017-07-08] MEDS: INSULIN ASPART [NOVOLOG] 3 ML PEN SC SCH ×7 (09:17→20:26)
--- NOTE | 2017-07-08 14:24 | PN ---
SHIMA OWUSU 07/08/17 1424: Date/Time of Note Date/Time of Note DATE: 07/08/17 TIME: 14:24 Assessment/Plan VTE Prophylaxis VTE Prophylaxis Intervention: ambulation Lines/Catheters IV Catheter Type (from Nrs): Saline Lock Urinary Cath still in place: No Assessment/Plan Chief Complaint/Hosp Course 1. Diabetic ketoacidosis. 2. Hyperkalemia resolved 3. Hyponatremia, resolved. 4. Acute kidney injury resolved 5. Dehydration. 6. History of hypertension. Problems: Assessment/Plan 1. continue current regime 2. diabetic education on Sunday 3. Pt is stable Subjective 24 Hr Interval Summary Constitutional: improved, no complaints Exam/Review of Systems Vital Signs Vitals Vital Signs Date Time Temp Pulse Resp B/P Pulse Ox O2 Delivery O2 Flow Rate FiO2 07/08/17 08:50 98.7 60 18 137/65 98 07/06/17 20:00 Room Air Intake and Output 07/07/17 07/07/17 07/08/17 14:59 22:59 06:59 Intake Total 1780 ml 1400 ml Output Total 700 ml 1500 ml Balance 1080 ml -100 ml Exam Constitutional: alert, oriented Respiratory: clear to auscultation Cardiovascular: regular rate and rhythm Results Result Diagram: 07/05/17 0445 07/08/17 0444 Results 24 hrs Laboratory Tests Test 07/07/17 17:41 07/07/17 21:25 07/08/17 01:46 07/08/17 04:44 Bedside Glucose 217 227 H 267 H Sodium Level 139 Potassium Level 3.8 Chloride Level 107 Carbon Dioxide Level 26 Anion Gap 10 Blood Urea Nitrogen 12 Creatinine 0.74 Glucose Level 253 H Calcium Level 8.4 Test 07/08/17 09:12 07/08/17 12:41 Bedside Glucose 191 116 Medications Medications Current Medications Ondansetron HCl (Zofran Inj) 4 mg Q6H PRN IV NAUSEA AND/OR VOMITING; Start at 21:00 Acetaminophen (Tylenol Liquid) 650 mg Q6H PRN PO PAIN LEVEL 1-3 OR FEVER; Start 07/04/17 at 21:00 Acetaminophen (Tylenol Tab) 650 mg Q6H PRN PO PAIN LEVEL 1-3 OR FEVER; Start 07/04/17 at 21:00 Docusate Sodium (Colace) 100 mg Q12H PRN PO CONSTIPATION; Start 07/04/17 at 21 :00 Magnesium Hydroxide (Milk Of Mag) 30 ml DAILY PRN PO CONSTIPATION; Start 07/04 at 21:00 Bisacodyl (Dulcolax) 5 mg DAILY PRN PO CONSTIPATION; Start 07/04/17 at 21:00 Pantoprazole (Protonix Iv) 40 mg DAILY@06 IV Last administered on 07/08/17 05 :31; Admin Dose 40 MG; Start 07/05/17 at 06:00 Enoxaparin Sodium (Lovenox) 40 mg DAILY SC Last administered on 07/08/17 09: 17; Admin Dose 40 MG; Start 07/05/17 at 09:00 Diagnostic Test (Pha) (Accu-Chek) 1 ea 02 XX ; Start 07/07/17 at 02:00 Miscellaneous Information 1 ea NOTE XX ; Start 07/06/17 at 09:30 Glucose (Glutose) 15 gm Q15M PRN PO DECREASED GLUCOSE; Start 07/06/17 at 09:30 Glucose (Glutose) 22.5 gm Q15M PRN PO DECREASED GLUCOSE; Start 07/06/17 at 09: 30 Dextrose (D50w Syringe) 25 ml Q15M PRN IV DECREASED GLUCOSE; Start 07/06/17 at 09:30 Dextrose (D50w Syringe) 50 ml Q15M PRN IV DECREASED GLUCOSE; Start 07/06/17 at 09:30 Glucagon (Glucagen) 1 mg Q15M PRN IM DECREASED GLUCOSE; Start 07/06/17 at 09: 30 Glucose (Glutose) 15 gm Q15M PRN BUCCAL DECREASED GLUCOSE; Start 07/06/17 at 09:30 Guaifenesin/ Dextromethorphan (Robitussin Dm Liquid Cup) 15 ml Q6H PRN PO COUGH Last administered on 07/08/17 01:37; Admin Dose 15 ML; Start 07/06/17 at 15:30 Insulin Glargine (Lantus) 18 unit QPM SC Last administered on 07/07/17 21:29 ; Admin Dose 18 UNIT; Start 07/07/17 at 21:00 Linagliptin (Tradjenta) 5 mg DAILY PO Last administered on 07/08/17 09:13; Admin Dose 5 MG; Start 07/07/17 at 13:30 SHANICE SCHRADER MD 07/08/17 1620: Assessment/Plan Assessment/Plan Assessment/Plan Sugars better Likely dc tmw after DM education and insulin teaching Exam/Review of Systems Results Result Diagram: 07/05/17 0445 07/08/17 0444 SHIMA GARNER Jul 08, 2017 14:24 SHANICE SCHRADER MD Jul 08, 2017 16:20
[2017-07-08 15:30] VITALS: BP 141/67; RESP 18
[2017-07-08 19:17] VITALS: BP 136/63; RESP 16
[2017-07-08] MEDS: INSULIN GLARGINE [LANtus] 3 ML PEN SC SCH (20:25)
[2017-07-09 01:28] VITALS: BP 157/68; RESP 16
[2017-07-09] MEDS: ACCU-CHEK XX SCH (02:10)
[2017-07-09 05:30] VITALS: BP 139/66; PULSE 51
[2017-07-09] MEDS: PANTOPRAZOLE 40 MG INJ IV SCH (05:45)
[2017-07-09 08:05] VITALS: BP 141/75; RESP 16
[2017-07-09] MEDS: LINAGLIPTIN 5 MG TABLET PO SCH (08:54)
[2017-07-09] MEDS: INSULIN ASPART [NOVOLOG] 3 ML PEN SC SCH ×6 (08:58→17:51)
[2017-07-09] MEDS: ENOXAPARIN 40 MG/0.4 ML SYG SC SCH (09:04)
--- NOTE | 2017-07-09 13:26 | PDOCDIS ---
Discharge Instructions DIAGNOSIS Discharge Diagnosis DKA New diagnosis of DM CONDITION Patient Condition: Fair HOME CARE INSTRUCTIONS: Diet Instructions: Reduced CalorieSpecial Diet: Carb controlled ACTIVITY: Activity Restrictions: Slowly Increase Activity Rest between Activity Bathing Restrictions: Shower FOLLOW UP/APPOINTMENTS Follow-up Plan F/U PCP in 1 -2 weeks Home nurse to f.u Carb controlled diet Use glucometer as instructed Return to ER if has uncontrolled sugars or hypoglycemia fs<60 SHANICE SCHRADER MD Jul 09, 2017 13:26
[2017-07-09] MEDS ORDERED: NOVO3I SC (13:29)
[2017-07-09] MEDS ORDERED: FAMO20TA18 PO (13:29)
[2017-07-09] MEDS ORDERED: LINA5TAB PO (13:29)
[2017-07-09] MEDS ORDERED: LANT3I SC (13:29)
--- NOTE | 2017-07-10 07:14 | DS ---
DATE OF ADMISSION: 07/04/2017 DATE OF DISCHARGE: 07/09/2017 FINAL DISCHARGE DIAGNOSES: 1. Diabetic ketoacidosis. 2. Hyperkalemia, resolved. 3. Hyponatremia secondary to uncontrolled diabetes, resolved. 4. Acute kidney injury, likely secondary to dehydration, resolved. 5. History of hypertension. 6. Noncompliance. HISTORY OF PRESENT ILLNESS AND HOSPITAL COURSE: This is a 61-year-old male who has past medical his tory of hypertension on Amlodipine and Hydrochlorothiazide presented with complaints of shivering an d shaking. The patient was having decreased intake by the mouth, was initially confused. On arriva l to ED, the patient had ABG done that showed pH of ____, pH 11, bicarbonate of 132. The patient's sodium was 136, potassium 5.9, bicarbonate 8, BUN of 13, creatinine 1.98. The patient had a urinaly sis that was negative. Urine toxicology was negative. Hemoglobin was 13.9, white count was 8.6, pl atelet count 245. UA also showed 2+ ketones. The patient was started on insulin drip due to DKA. He was kept in ICU. The patient also had LFTs that were normal. Ammonia levels were 18, and tropon in was 0.017. The patient was in absolute shock due to new diagnosis of diabetes. He was not able to accept the new diagnosis of diabetes. Multiple visits were done by the nurse informatics educator at the bedside. The patient was explained about the insulin. HbA1c was sent, however, it was very high, c ould not be calculated here, and it was sent out. Finally, sugars were stabilizing. The patient wa s switched to Lantus and aspart t.i.d. with meals. The patient was also started on Tradjenta. Suga rs were in the 300s and finally glucose was obtained at target levels with Lantus 15 and aspart at 5 t.i.d. and Tradjenta 5. The patient was given education with nurse informatics educator. He had a glucomet er. He was explained about symptoms and signs and symptoms of hyper and hypoglycemia. The patient will be followed up as an outpatient. DISCHARGE CONDITION: Stable. DISCHARGE DISPOSITION: Home. DISCHARGE MEDICATIONS 1. Lantus 15 mg p.o. at subQ at bedtime. 2. Novolin insulin aspart at 5 t.i.d. with meals. 3. Tradjenta 5 mg. 4. Pepcid 20 mg p.o. every day p.r.n. in dyspepsia. 5. Hydrochlorothiazide 25 p.o. daily. 6. Amlodipine 5 mg p.o. daily. 7. Lisinopril 10 mg p.o. daily. DISCHARGE INSTRUCTIONS: The patient was instructed to follow up with the PCP in about 1 to 2 weeks. Arrangement was done for home health nurse and patient was instructed to take his insulin as instr ucted, and return to the ER if he has any signs or symptoms of hypo or hyperglycemia. Dictated By: SHANICE ROJAS/LEO Conf#: [id number] DID#: [id number]
== END 2017-07-09 19:00 | disposition home health service (06) | DRG 638 ==
LOC: E/R 18:48 → ICU 20:11 → MS1 07-06 22:15
PROVIDERS: ADMIT Internal Medicine Nephrology; ATTEND Internal Medicine Nephrology
DX: E11.10 Type 2 diabetes mellitus with ketoacidosis without coma (principal); E87.1 Hypo-osmolality and hyponatremia; N17.9 Acute kidney failure, unspecified; E87.5 Hyperkalemia; E86.0 Dehydration; I10 Essential (primary) hypertension; Z91.19 Patient's noncompliance with other medical treatment and regimen
CPT/HCPCS: 36415; 36600; 70450; 71010; 80048; 80053; 80306; 80307; 81001; 82140; 82803; 82962; 83036; 83605; 83735; 84100; 84484; 85025; 85610; 85730; 90686; 93005; 96361; 96365; 96366; C9113; J1650; J1815; J3480; J7030; J7042; J7050; J7120

== ENCOUNTER 2017-07-13 19:21 | Emergency (ER) | END 2017-07-13 20:26 | disposition home or self-care (01) ==

== ENCOUNTER 2017-07-16 08:12 | Emergency (ER) | payer OTHER ==
[~2017-07-16] VITALS: Ht 165.1 cm; Wt 66.4 kg
[~2017-07-16 08:12] MED LIST: AMLO5TAB4 PO; FAMO20TA18 PO; HYDR25TA6 PO; INSU100C SQ; INSU100I33 SC; LANT3I SC; LINA5TAB PO; LISI10TA2 PO; NOVO3I SC
[2017-07-16 08:13] VITALS: Ht 165.1 cm; Wt 66.4 kg
[2017-07-16] MEDS ORDERED: INSU100C SQ (09:14)
[2017-07-16] MEDS ORDERED: INSU100I33 SC (09:15)
--- NOTE | 2017-07-16 10:40 | ERD ---
ER Documentation Chief Complaint Chief Complaint needs prescription change for insulin HPI This is a 61-year-old male presents to the ER stating he needs to change his insulin prescription because [facility] pharmacy will not fill it. Patient was seen here on July 13 [facility] was called at that time, Humalog and Basaglar are covered for this patient. 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 Patient is completely asymptomatic, he denies any chest pain, palpitations, dizziness, lightheadedness , shortness of breath. ROS All systems reviewed and are negative except as per history of present illness. Medications Home Meds Active Scripts Insulin Glargine,Hum.rec.anlog (Basaglar Kwikpen U-100) 100 Unit/1 Ml Insuln.pen , 15 UNIT SC QHS for 30 Days Prov:JANE ABDINA C 07/16/17 Insulin Lispro (Humalog) 100 Unit/1 Ml Cartridge, 5 UNIT SQ WITH MEALS for 30 Days Prov:JANE ABDINA C 07/16/17 Insulin Lispro (Humalog) 100 Unit/1 Ml Cartridge, 5 UNIT SQ WITH MEALS for 30 Days Prov:OFELIA OROZCO-C 07/13/17 Insulin Glargine,Hum.rec.anlog (Basaglar Kwikpen U-100) 100 Unit/1 Ml Insuln.pen , 15 UNIT SC QHS for 30 Days Prov:OFELIA OROZCO-C 07/13/17 Famotidine* (Famotidine*) 20 Mg Tablet, 20 MG PO DAILY for heart burn for 30 Days, #30 TAB Prov:SHANICE SCHRADER MD 07/09/17 Insulin Aspart* (Novolog Insulin Pen*) 100 Unit/Ml Soln, 5 UNIT SC WITH MEALS for 30 Days Prov:SHANICE SCHRADER MD 07/09/17 Linagliptin (TRADJENTA) 5 Mg Tablet, 5 MG PO DAILY for 30 Days, #30 TAB Prov:SHANICE SCHRADER MD 07/09/17 Insulin Glargine* (Lantus*) 100 Unit/Ml Soln, 15 UNIT SC QPM for 30 Days 1 month supply Prov:SHANICE SCHRADER MD 07/09/17 Reported Medications Amlodipine Besylate* (Norvasc*) 5 Mg Tablet, 5 MG PO DAILY, TAB 07/04/17 Hydrochlorothiazide* (Hydrochlorothiazide*) 25 Mg Tab, 25 MG PO DAILY, #30 TAB 07/04/17 Lisinopril* (Lisinopril*) 10 Mg Tablet, 10 MG PO DAILY, #30 TAB 07/04/17 Discontinued Scripts Insulin Lispro (Humalog) 100 Unit/1 Ml Cartridge, 100 UNIT SQ WITH MEALS for 30 Days Prov:OFELIA OROZCO PA-C 07/13/17 Allergies Allergies: Coded Allergies: No Known Allergy (Unverified , 07/16/17) PMhx/Soc Medical and Surgical Hx: pt denies Surgical Hx History of Surgery: No Anesthesia Reaction: No Hx Neurological Disorder: No Hx Respiratory Disorders: No Hx Cardiac Disorders: Yes (HTN) Hx Psychiatric Problems: No Hx Miscellaneous Medical Probl: Yes (diabetic ) Hx Alcohol Use: No Hx Substance Use: No Hx Tobacco Use: No Smoking Status: Never smoker Physical Exam Vitals Vital Signs Date Time Temp Pulse Resp B/P Pulse Ox O2 Delivery O2 Flow Rate FiO2 07/16/17 08:13 97.8 68 16 99 Physical Exam GENERAL: The patient is well developed and appropriate for usual state of health , in no apparent distress. HEENT: Atraumatic. CHEST: Clear to auscultation bilaterally. There are no rales, wheezes or rhonchi. HEART: Regular rate and rhythm. No murmurs, clicks, rubs or gallops. ABDOMEN: Soft, nontender and nondistended. NEURO: Alert and oriented. Cranial nerves II through XII are intact. SKIN: T Procedures/MDM This is a 61-year-old male presents to the ER requesting insulin prescription change., Patient was given the correct prescriptions at last visit, however patient did not take the prescriptions to [facility]. I reprinted the prescriptions for the patient and explained to him that he must take these prescriptions to the pharmacy to get them filled. Patient is completely asymptomatic today. He urgently needs to go fill his prescriptions. When the patient's paperwork from his previous admission and carefully explained to him why it is important to fill the prescriptions and take them. Patient does have a primary care doctor and he will follow-up to get refills in the future. Patient is afebrile and otherwise well-appearing. His vitals are stable. He has no complaints at this time. I do not feel the patient requires further workup or imaging. Patient is to follow-up with his PCP within 1-2 days or return to ER or if symptoms worsen. My medical decision making shared with the patient he understands and agrees with plan. Departure Diagnosis: Primary Impression: Encounter for medication refill Condition: Stable Patient Instructions: Taking Medicine Safely Referrals: CRISTINA PEREZ (PCP) Additional Instructions: Call your primary care doctor TOMORROW for an appointment during the next 1-2 days.See the doctor sooner or return here if your condition worsens before your appointment time. BINH ABDI Jul 16, 2017 10:40
== END 2017-07-16 09:47 | disposition home or self-care (01) ==
LOC: FTE 08:12
DX: Z76.0 Encounter for issue of repeat prescription (principal); I10 Essential (primary) hypertension; E11.9 Type 2 diabetes mellitus without complications; Z79.4 Long term (current) use of insulin; Z79.84 Long term (current) use of oral hypoglycemic drugs
CPT/HCPCS: 99281

== ENCOUNTER 2017-07-27 10:37 | Emergency (ER) | END 2017-07-28 17:40 | disposition home or self-care (01) ==

== ENCOUNTER 2017-10-10 17:02 | Emergency (ER) | END 2017-10-10 18:00 | disposition home or self-care (01) ==

== ENCOUNTER 2017-11-07 17:10 | Emergency (ER) | END 2017-11-07 18:58 | disposition home or self-care (01) ==

== ENCOUNTER 2017-12-14 19:26 | Emergency (ER) | END 2017-12-14 20:30 | disposition home or self-care (01) ==

== ENCOUNTER 2017-12-26 17:47 | Emergency (ER) | END 2017-12-26 17:58 | disposition home or self-care (01) ==

== ENCOUNTER 2018-05-15 18:58 | Emergency (ER) | END 2018-05-15 20:01 | disposition home or self-care (01) ==

== ENCOUNTER 2018-07-10 16:49 | Emergency (ER) | END 2018-07-10 18:12 | disposition home or self-care (01) ==

== ENCOUNTER 2018-07-12 16:55 | Emergency (ER) | END 2018-07-12 17:54 | disposition home or self-care (01) ==

== ENCOUNTER 2018-07-30 12:13 | Emergency (ER) | payer MEDICAID ==
[~2018-07-30] VITALS: Ht 167.6 cm; Wt 76.0 kg
[~2018-07-30 12:13] MED LIST changes: +AMLO-147 PO; +AMLO-218 PO; +BENZ-6 PO; +D-ME473S2 PO; +FAMO-96 PO
[2018-07-30 12:27] VITALS: Ht 167.6 cm; Wt 76.0 kg
[2018-07-30] MEDS ORDERED: AZIT250T PO (13:18)
[2018-07-30] MEDS ORDERED: D-ME473S2 PO (13:18)
[2018-07-30] MEDS ORDERED: BENZ-6 PO (13:18)
--- NOTE | 2018-07-30 13:21 | ERD ---
ER Documentation Chief Complaint Chief Complaint COUGH X 2 DAYS, DENIES FEVERS HPI 62-year-old male presents with cough for last 2 days. Denies fevers. He complains of productive yellow mucus. Denies any chest pain, vomiting, abdominal pain. ROS All systems reviewed and are negative except as per history of present illness. Medications Home Meds Active Scripts Azithromycin* (Zithromax*) 250 Mg Tablet, 250 MG PO .ZPACK DIRECTED, #6 TAB TAKE 500 MG (2 TABS) THE FIRST DAY THEN 250 MG (1 TAB) DAYS 2-5 Prov:FIFI BROWER MD 07/30/18 Benzonatate* (Tessalon Perle*) 100 Mg Capsule, 100 MG PO Q8H PRN for COUGH for 5 Days, #14 CAP Prov:FIFI BROWER MD 07/30/18 Dextromethorphan Hb-Promethazine Hcl* (Promethazine DM* Syrup) 473 Ml Syrup, 5 ML PO QHS PRN for COUGH for 5 Days, ML Prov:FIFI BROWER MD 07/30/18 Dextromethorphrosalinda Hb-Promethazine Hcl* (Promethazine DM* Syrup) 473 Ml Syrup, 5 ML PO Q6 PRN for COUGH for 5 Days, ML Prov:FIFI BROWER MD 07/12/18 Linagliptin (TRADJENTA) 5 Mg Tablet, 5 MG PO qday, #30 TAB Prov:FIFI BROWER MD 07/10/18 Famotidine* (Famotidine*) 20 Mg Tablet, 20 MG PO DAILY, #30 TAB Prov:FIFI BROWER MD 07/10/18 Insulin Lispro (Humalog) 100 Unit/1 Ml Cartridge, 5 UNIT SQ WITH MEALS for 30 Days, EA Prov:FIFI BROWER MD 07/10/18 Insulin Glargine,Hum.rec.anlog (Basaglar Kwikpen U-100) 100 Unit/1 Ml Insuln.pen, 100 UNIT SC QHS for 30 Days, EA Prov:FIFI BROWER MD 07/10/18 Hydrochlorothiazide* (Hydrochlorothiazide*) 25 Mg Tab, 25 MG PO DAILY, #30 TAB Prov:FIFI BROWER MD 07/10/18 Amlodipine Besylate* (Amlodipine Besylate*) 10 Mg Tablet, 10 MG PO DAILY, #30 TAB Prov:FIFI BROWER MD 07/10/18 Insulin Glargine,Hum.rec.anlog (Basaglar Kwikpen U-100) 100 Unit/1 Ml Insuln.pen, 15 UNIT SC QHS, #1 EA Prov:ASHLEY TORO PA-C 05/15/18 Insulin Lispro (Humalog) 100 Unit/1 Ml Cartridge, 5 UNIT SQ AC A, #1 Prov:ASHLEY TORO PA-C 05/15/18 Amlodipine Besylate* (Norvasc*) 10 Mg Tablet, 10 MG PO DAILY, #30 TAB Prov:ASHLEY TORO PA-C 05/15/18 Hydrochlorothiazide* (Hydrochlorothiazide*) 25 Mg Tab, 25 MG PO DAILY, #30 TAB Prov:ASHLEY TORO PA-C 05/15/18 Linagliptin (TRADJENTA) 5 Mg Tablet, 5 MG PO ONCE, #30 TAB Prov:YUKI SPEARS PA-C 12/26/17 Famotidine* (Pepcid*) 20 Mg Tablet, 20 MG PO ONCE, #30 TAB Prov:YUKI SPEARS PA-C 12/26/17 Insulin Glargine,Hum.rec.anlog (Basaglar Kwikpen U-100) 100 Unit/1 Ml Insuln.pen, 15 UNIT SC DAILY PRN for at bedtime for 30 Days, EA Prov:TOMMIE QUINN NP 12/14/17 Famotidine* (Famotidine*) 20 Mg Tablet, 20 MG PO DAILY for heart burn for 30 Days, #30 TAB Prov:TOMMIE QUINN NP 12/14/17 Linagliptin (TRADJENTA) 5 Mg Tablet, 5 MG PO DAILY for 30 Days, #30 TAB Prov:TOMMIE QUINN NP 12/14/17 Insulin Lispro (Humalog) 100 Unit/1 Ml Cartridge, 5 UNIT SQ WITH MEALS for 30 Days Prov:LINETTE KONG MD 11/07/17 Insulin Glargine,Hum.rec.anlog (Basaglar Kwikpen U-100) 100 Unit/1 Ml Insuln.pen, 15 UNIT SC QHS for 30 Days Prov:LINETTE KONG MD 11/07/17 Benzonatate* (Tessalon Perle*) 100 Mg Capsule, 100 MG PO Q8H PRN for COUGH, #20 CAP Prov:NELSON,CATRINA 10/10/17 Hydrochlorothiazide* (Hydrochlorothiazide*) 25 Mg Tab, 25 MG PO DAILY, #30 TAB Prov:NELSON,CATRINA 10/10/17 Amlodipine Besylate* (Amlodipine Besylate*) 10 Mg Tablet, 10 MG PO DAILY for 30 Days, #30 TAB Prov:NELSON,CATRINA 10/10/17 Linagliptin (TRADJENTA) 5 Mg Tablet, 5 MG PO DAILY for 30 Days, #30 TAB Prov:NELSON,CATRINA 10/10/17 Famotidine* (Pepcid*) 20 Mg Tablet, 20 MG PO DAILY for 30 Days, #30 TAB Prov:NELSON,CATRINA 10/10/17 Insulin Lispro (Humalog) 100 Unit/1 Ml Cartridge, 5 UNIT SQ AC MEALS for 30 Days, EA Prov:NELSON,CATRINA 10/10/17 Benzonatate* (Tessalon Perle*) 100 Mg Capsule, 100 MG PO Q8H PRN for COUGH, #30 CAP Prov:ISRAEL JORGE PA-C 07/27/17 Dextromethorphan Hb-Promethazine Hcl* (Promethazine DM* Syrup) 473 Ml Syrup, 5 ML PO Q6 PRN for COUGH for 100 Days, ML Prov:ISRAEL JORGE-C 07/27/17 Insulin Glargine,Hum.rec.anlog (Basaglar Kwikpen U-100) 100 Unit/1 Ml Insuln.pen, 15 UNIT SC QHS for 30 Days Prov:BINH ABDI 07/16/17 Insulin Lispro (Humalog) 100 Unit/1 Ml Cartridge, 5 UNIT SQ WITH MEALS for 30 Days Prov:BINH ABDI 07/16/17 Insulin Aspart* (Novolog Insulin Pen*) 100 Unit/Ml Soln, 5 UNIT SC WITH MEALS for 30 Days Prov:SHANICE SCHRADER MD 07/09/17 Insulin Glargine* (Lantus*) 100 Unit/Ml Soln, 15 UNIT SC QPM for 30 Days 1 month supply Prov:SHANICE SCHRADER MD 07/09/17 Reported Medications Amlodipine Besylate* (Norvasc*) 5 Mg Tablet, 5 MG PO DAILY, TAB 07/04/17 Hydrochlorothiazide* (Hydrochlorothiazide*) 25 Mg Tab, 25 MG PO DAILY, #30 TAB 07/04/17 Lisinopril* (Lisinopril*) 10 Mg Tablet, 10 MG PO DAILY, #30 TAB 07/04/17 Allergies Allergies: Coded Allergies: No Known Allergy (Unverified , 07/10/18) PMhx/Soc History of Surgery: No Anesthesia Reaction: No Hx Neurological Disorder: No Hx Respiratory Disorders: No Hx Cardiac Disorders: Yes (HTN) Hx Psychiatric Problems: No Hx Miscellaneous Medical Probl: Yes (diabetic ) Hx Alcohol Use: No Hx Substance Use: No Hx Tobacco Use: No FmHx Family History: No diabetes, No coronary disease, No other Physical Exam Vitals Vital Signs Date Temp Pulse Resp B/P (MAP) Pulse Ox O2 O2 Flow FiO2 Time Delivery Rate 07/30/18 97.5 89 18 140/72 98 Room Air 13:40 (94) 07/30/18 97.5 77 18 142/69 96 12:27 (93) Physical Exam Const: No acute distress Head: Atraumatic Eyes: Normal Conjunctiva ENT: Normal External Ears, Nose and Mouth. TMs and oropharynx normal. Neck: Full range of motion. No meningismus. Resp: Clear to auscultation bilaterally .coarse cough without rales, wheezing or retractions. Cardio: Regular rate and rhythm, no murmurs Abd: Soft, non tender, non distended. Normal bowel sounds Skin: No petechiae or rashes Back: No midline or flank tenderness Ext: No cyanosis, or edema Neur: Awake and alert Psych: Normal Mood and Affect Procedures/MDM Presents with productive cough for last 3 days. He has no evidence of hypoxemia, respiratory stress, symptoms of chest pain or abdominal pain. We will treat empirically with Zithromax by request but encouraged to hold and allow possible viral illness resolved. Will give Promethazine DM by request for nighttime and Tessalon Perles for daytime. Patient was referred to local primary doctors for ongoing primary care by request. The patient was stable with no new complaints during the ER course. Clinically, there is no current evidence to suggest meningitis, sepsis, acute abdomen, pneumonia, stroke, acute coronary syndrome, pulmonary embolism, aortic dissection or any other emergent condition appearing to require further evaluation or hospitalization. Patient counseled regarding my diagnostic impression and care plan. Prior to discharge all questions answered. Pt agrees with treatment plan and understands strict return precautions. Pt is instructed to follow up with primary care provider within 24-48 hours. Precautionary instructions provided including instructions to return to the ER if not improving or for any worsening or changing symptoms or concerns. Disclaimer: Inadvertent spelling and grammatical errors are likely due to EHR/dictation software use and do not reflect on the overall quality of patient care. Also, please note that the electronic time recorded on this note does not necessarily reflect the actual time of the patient encounter. Departure Diagnosis: Primary Impression: Cough Condition: Stable Patient Instructions: Bronchitis, Antiobiotic Treatment (Adult) Referrals: [facility] YOU HAVE RECEIVED A MEDICAL SCREENING EXAM AND THE RESULTS INDICATE THAT YOU DO NOT HAVE A CONDITION THAT REQUIRES URGENT TREATMENT IN THE EMERGENCY DEPARTMENT. FURTHER EVALUATION AND TREATMENT OF YOUR CONDITION CAN WAIT UNTIL YOU ARE SEEN IN YOUR DOCTORS OFFICE WITHIN THE NEXT 1-2 DAYS. IT IS YOUR RESPONSIBILITY TO MAKE AN APPOINTMENT FOR FOLOW-UP CARE. IF YOU HAVE A PRIMARY DOCTOR --you should call your primary doctor and schedule an appointment IF YOU DO NOT HAVE A PRIMARY DOCTOR YOU CAN CALL OUR PHYSICIAN REFERRAL HOTLINE AT IF YOU CAN NOT AFFORD TO SEE A PHYSICIAN YOU CAN CHOSE FROM THE FOLLOWING [facility] [address] [facility] [address] [facility] [facility] [address] [facility] [address] [facility] [address] [facility]. [facility]. [address] Additional Instructions: Recheck with primary doctor or for new or worsening symptoms. FIFI BROWER MD Jul 30, 2018 13:21
[2018-07-30 13:40] VITALS: BP 140/72; PULSE 89; RESP 18
[2018-08-12] MEDS ORDERED: ACET500C5 PO (22:32)
[2018-08-12] MEDS ORDERED: OSEL75CA23 PO (22:32)
[2018-08-12] MEDS ORDERED: GUAI-95 PO (22:32)
== END 2018-07-30 14:17 | disposition home or self-care (01) ==
LOC: FTE 12:13
DX: R05 Cough (principal); E11.9 Type 2 diabetes mellitus without complications; I10 Essential (primary) hypertension
CPT/HCPCS: 99283

== ENCOUNTER 2018-09-11 17:40 | Emergency (ER) | payer MEDICAID, OTHER ==
[~2018-09-11] VITALS: Ht 165.1 cm; Wt 77.0 kg
[~2018-09-11 17:40] MED LIST changes: +ACET500C5 PO; +AZIT250T PO; +GUAI-95 PO; +OSEL75CA23 PO
[2018-09-11 17:47] VITALS: BP 159/77; PULSE 76; RESP 16; Ht 165.1 cm; Wt 77.0 kg
[2018-09-11] MEDS ORDERED: INSU100I33 SC (19:14)
[2018-09-11] MEDS ORDERED: AMLO5TAB4 PO (19:14)
[2018-09-11] MEDS ORDERED: INSU100I12 SQ (19:14)
[2018-09-11] MEDS ORDERED: HYDR25TA6 PO (19:14)
--- NOTE | 2018-09-11 19:18 | ERD ---
ER Documentation Chief Complaint Chief Complaint MED REFILL FOR HTN MEDS HPI 62-year-old male presents with a request for refills of his hypertension diabetes medication. He states that he left him on the bus. Is requesting referral for primary care as well. Denies fevers, vomiting, chest pain, deficits, additional symptoms. ROS All systems reviewed and are negative except as per history of present illness. Medications Home Meds Active Scripts Insulin Lispro (Humalog Kwikpen U-100) 100 Unit/1 Ml Insuln.pen, 5 UNIT SQ qac for 30 Days, EA With needles as directed Prov:FIFI BROWER MD 09/11/18 Insulin Glargine,Hum.rec.anlog (Basaglar Kwikpen U-100) 100 Unit/1 Ml Insuln.pen, 100 UNIT SC q hs for 30 Days, EA With needles Prov:FIFI BROWER MD 09/11/18 Amlodipine Besylate* (Norvasc*) 5 Mg Tablet, 5 MG PO DAILY, #30 TAB Prov:FIFI BROWER MD 09/11/18 Hydrochlorothiazide* (Hydrochlorothiazide*) 25 Mg Tab, 25 MG PO DAILY, #30 TAB Prov:FIFI BROWER MD 09/11/18 Acetaminophen* (Tylophen*) 500 Mg Capsule, 1 CAP PO Q6H PRN for PAIN AND OR ELEVATED TEMP, #20 CAP Prov:YUKI SPEARS PA-C 08/12/18 Guaifenesin/Dextromethorphan (Diabetic Tussin DM*) 118 Ml Liquid, 5 ML PO Q4H PRN for COUGH, #100 BOTTLE Prov:YUKI SPEARS PA-C 08/12/18 Oseltamivir Phosphate* (Tamiflu*) 75 Mg Capsule, 75 MG PO BID for 5 Days, #9 CAP You have your first dose of your medicine in the ER. You have 9 remaining capsules. Prov:YUKI SPEARS PA-C 08/12/18 Azithromycin* (Zithromax*) 250 Mg Tablet, 250 MG PO .ZPACK DIRECTED, #6 TAB TAKE 500 MG (2 TABS) THE FIRST DAY THEN 250 MG (1 TAB) DAYS 2-5 Prov:FIFI BROWER MD 1/8/19 Benzonatate* (Tessalon Perle*) 100 Mg Capsule, 100 MG PO Q8H PRN for COUGH for 5 Days, #14 CAP Prov:FIFI BROWER MD 07/30/18 Dextromethorphan Hb-Promethazine Hcl* (Promethazine DM* Syrup) 473 Ml Syrup, 5 ML PO QHS PRN for COUGH for 5 Days, ML Prov:FIFI BROWER MD 07/30/18 Dextromethorphan Hb-Promethazine Hcl* (Promethazine DM* Syrup) 473 Ml Syrup, 5 ML PO Q6 PRN for COUGH for 5 Days, ML Prov:FIFI BROWER MD 07/12/18 Linagliptin (TRADJENTA) 5 Mg Tablet, 5 MG PO qday, #30 TAB Prov:FIFI BROWER MD 07/10/18 Famotidine* (Famotidine*) 20 Mg Tablet, 20 MG PO DAILY, #30 TAB Prov:FIFI BROWER MD 07/10/18 Insulin Lispro (Humalog) 100 Unit/1 Ml Cartridge, 5 UNIT SQ WITH MEALS for 30 Days, EA Prov:FIFI BROWER MD 07/10/18 Insulin Glargine,Hum.rec.anlog (Basaglar Kwikpen U-100) 100 Unit/1 Ml Insuln.pen, 100 UNIT SC QHS for 30 Days, EA Prov:FIFI BROWER MD 07/10/18 Hydrochlorothiazide* (Hydrochlorothiazide*) 25 Mg Tab, 25 MG PO DAILY, #30 TAB Prov:FIFI BROWER MD 07/10/18 Amlodipine Besylate* (Amlodipine Besylate*) 10 Mg Tablet, 10 MG PO DAILY, #30 TAB Prov:FIFI BROWER MD 07/10/18 Insulin Glargine,Hum.rec.anlog (Basaglar Kwikpen U-100) 100 Unit/1 Ml Insul n.pen, 15 UNIT SC QHS, #1 EA Prov:ASHLEY TORO PA-C 05/15/18 Insulin Lispro (Humalog) 100 Unit/1 Ml Cartridge, 5 UNIT SQ AC A, #1 Prov:ASHLEY TORO PA-C 05/15/18 Amlodipine Besylate* (Norvasc*) 10 Mg Tablet, 10 MG PO DAILY, #30 TAB Prov:ASHLEY TORO PA-C 05/15/18 Hydrochlorothiazide* (Hydrochlorothiazide*) 25 Mg Tab, 25 MG PO DAILY, #30 TAB Prov:ASHLEY TORO PA-C 05/15/18 Linagliptin (TRADJENTA) 5 Mg Tablet, 5 MG PO ONCE, #30 TAB Prov:YUKI SPEARS PA-C 12/26/17 Famotidine* (Pepcid*) 20 Mg Tablet, 20 MG PO ONCE, #30 TAB Prov:YUKI SPEARS PA-C 12/26/17 Insulin Glargine,Hum.rec.anlog (Basaglar Kwikpen U-100) 100 Unit/1 Ml Insuln.pen, 15 UNIT SC DAILY PRN for at bedtime for 30 Days, EA Prov:TOMMIE QUINN NP 12/14/17 Famotidine* (Famotidine*) 20 Mg Tablet, 20 MG PO DAILY for heart burn for 30 Days, #30 TAB Prov:TOMMIE QUINN NP 12/14/17 Linagliptin (TRADJENTA) 5 Mg Tablet, 5 MG PO DAILY for 30 Days, #30 TAB Prov:TOMMIE QUINN NP 12/14/17 Insulin Lispro (Humalog) 100 Unit/1 Ml Cartridge, 5 UNIT SQ WITH MEALS for 30 Days Prov:LINETTE KONG MD 11/07/17 Insulin Glargine,Hum.rec.anlog (Basaglar Kwikpen U-100) 100 Unit/1 Ml Insuln.pen, 15 UNIT SC QHS for 30 Days Prov:LINETTE KONG MD 11/07/17 Benzonatate* (Tessalon Perle*) 100 Mg Capsule, 100 MG PO Q8H PRN for COUGH, #20 CAP Prov:NELSON,CATRINA 10/10/17 Hydrochlorothiazide* (Hydrochlorothiazide*) 25 Mg Tab, 25 MG PO DAILY, #30 TAB Prov:NELSON,CATRINA 10/10/17 Amlodipine Besylate* (Amlodipine Besylate*) 10 Mg Tablet, 10 MG PO DAILY for 30 Days, #30 TAB Prov:NELSON,CATRINA 10/10/17 Linagliptin (TRADJENTA) 5 Mg Tablet, 5 MG PO DAILY for 30 Days, #30 TAB Prov:NELSON,CATRINA 10/10/17 Famotidine* (Pepcid*) 20 Mg Tablet, 20 MG PO DAILY for 30 Days, #30 TAB Prov:NELSON,CATRIAN 10/10/17 Insulin Lispro (Humalog) 100 Unit/1 Ml Cartridge, 5 UNIT SQ AC MEALS for 30 Days, EA Prov:NELSON,CATRINA 10/10/17 Benzonatate* (Tessalon Perle*) 100 Mg Capsule, 100 MG PO Q8H PRN for COUGH, #30 CAP Prov:ISRAEL JORGE PA-C 07/27/17 Dextromethorphan Hb-Promethazine Hcl* (Promethazine DM* Syrup) 473 Ml Syrup, 5 ML PO Q6 PRN for COUGH for 100 Days, ML Prov:ISRAEL JORGE PA-C 07/27/17 Insulin Glargine,Hum.rec.anlog (Basaglar Kwikpen U-100) 100 Unit/1 Ml Insuln.pen, 15 UNIT SC QHS for 30 Days Prov:BINH ABDI 07/16/17 Insulin Lispro (Humalog) 100 Unit/1 Ml Cartridge, 5 UNIT SQ WITH MEALS for 30 Days Prov:BINH ABDI 07/16/17 Insulin Aspart* (Novolog Insulin Pen*) 100 Unit/Ml Soln, 5 UNIT SC WITH MEALS for 30 Days Prov:SHANICE SCHRADER MD 07/09/17 Insulin Glargine* (Lantus*) 100 Unit/Ml Soln, 15 UNIT SC QPM for 30 Days 1 month supply Prov:SHANICE SCHRADER MD 07/09/17 Reported Medications Amlodipine Besylate* (Norvasc*) 5 Mg Tablet, 5 MG PO DAILY, TAB 07/04/17 Hydrochlorothiazide* (Hydrochlorothiazide*) 25 Mg Tab, 25 MG PO DAILY, #30 TAB 07/04/17 Lisinopril* (Lisinopril*) 10 Mg Tablet, 10 MG PO DAILY, #30 TAB 07/04/17 Allergies Allergies: Coded Allergies: No Known Allergy (Unverified , 07/10/18) PMhx/Soc History of Surgery: No Anesthesia Reaction: No Hx Neurological Disorder: No Hx Respiratory Disorders: No Hx Cardiac Disorders: Yes (HTN) Hx Psychiatric Problems: No Hx Miscellaneous Medical Probl: Yes (DM) Hx Alcohol Use: Yes Hx Substance Use: No Hx Tobacco Use: No Physical Exam Vitals Vital Signs Date Temp Pulse Resp B/P (MAP) Pulse Ox O2 O2 Flow FiO2 Time Delivery Rate 09/11/18 97.5 76 16 159/77 98 17:47 (104) Physical Exam Const: No acute distress Head: Atraumatic Eyes: Normal Conjunctiva ENT: Normal External Ears, Nose and Mouth. Neck: Full range of motion. No meningismus. Resp: Clear to auscultation bilaterally Cardio: Regular rate and rhythm, no murmurs Abd: Soft, non tender, non distended. Normal bowel sounds Skin: No petechiae or rashes Back: No midline or flank tenderness Ext: No cyanosis, or edema Neur: Awake and alert Psych: Normal Mood and Affect Procedures/MDM Patient presents with request for refill for hypertension, diabetes. He has no signs or symptoms to suggest sepsis, ketoacidosis, chest pain or shortness of breath. We given refills of his Humalog, Lantus, Norvasc, hydrochlorothiazide with referral to primary care. The patient was stable with no new complaints during the ER course. Clinically, there is no current evidence to suggest meningitis, sepsis, acute abdomen, pneumonia, stroke, acute coronary syndrome, pulmonary embolism, aortic dissection or any other emergent condition appearing to require further evaluation or hospitalization. Patient counseled regarding my diagnostic impression and care plan. Prior to discharge all questions answered. Pt agrees with treatment plan and understands strict return precautions. Pt is instructed to follow up with primary care provider within 24- 48 hours. Precautionary instructions provided including instructions to return to the ER if not improving or for any worsening or changing symptoms or concerns. Departure Diagnosis: Primary Impression: Hypertension Hypertension type: unspecified Qualified Codes: I10 - Essential (primary) hypertension Additional Impressions: Encounter for medication refill History of diabetes mellitus Condition: Stable Patient Instructions: DIABETES, General Info, Hypertension, Established Referrals: [facility] YOU HAVE RECEIVED A MEDICAL SCREENING EXAM AND THE RESULTS INDICATE THAT YOU DO NOT HAVE A CONDITION THAT REQUIRES URGENT TREATMENT IN THE EMERGENCY DEPARTMENT. FURTHER EVALUATION AND TREATMENT OF YOUR CONDITION CAN WAIT UNTIL YOU ARE SEEN IN YOUR DOCTORS OFFICE WITHIN THE NEXT 1-2 DAYS. IT IS YOUR RESPONSIBILITY TO MAKE AN APPOINTMENT FOR FOLOW-UP CARE. IF YOU HAVE A PRIMARY DOCTOR --you should call your primary doctor and schedule an appointment IF YOU DO NOT HAVE A PRIMARY DOCTOR YOU CAN CALL OUR PHYSICIAN REFERRAL HOTLINE AT IF YOU CAN NOT AFFORD TO SEE A PHYSICIAN YOU CAN CHOSE FROM THE FOLLOWING [facility] [place] [address] [facility]. [facility] [address] [facility] [facility] [address] [facility] [facility] [address] [facility]. [facility] [address] [facility]. [facility]. [address] Additional Instructions: Follow-up with primary doctor for further evaluation treatment and primary care. FIFI BROWER MD Sep 11, 2018 19:18
== END 2018-09-11 19:38 | disposition home or self-care (01) ==
LOC: FTE 17:40
DX: I10 Essential (primary) hypertension (principal); E11.9 Type 2 diabetes mellitus without complications; Z79.4 Long term (current) use of insulin
CPT/HCPCS: 99281